=== PATIENT | male | born 1975 | race Caucasian/White ===

== ENCOUNTER 2018-08-30 14:03 | Emergency (ER) | payer BC, OTHER ==
[~2018-08-30] VITALS: Ht 180.3 cm; Wt 83.0 kg
[~2018-08-30 14:03] MED LIST: KEFL500C17 PO; PERCOCET PO; TYLE325T5 PO; ZOLO100T PO
[2018-08-30] MEDS ORDERED: MORPHINE 4 MG/ML 1ML VIAL/SYRINGE (J2270) IV ONE (16:15)
[2018-08-30 16:37] LABS: BASO # 0.1 10^3/uL (0.0-0.2); EOS # 0.3 10^3/uL (0.0-0.50); EOS % 3.3 % (0.0-3.0); HEMATOCRIT 45.6 % (42.0-52.0); HEMOGLOBIN 15.1 g/dl (13.5-17.5); LYMPH # 2.2 10^3/uL (1.5-4.5); LYMPH % 22.2 % (24.0-44.0); MEAN CORPUSCULAR HEMOGLOBIN 32.4 pg (27.0-33.0); MEAN CORPUSCULAR HGB CONC 33.1 g/dl (32.0-36.5); MEAN CORPUSCULAR VOLUME 97.9 fl (80.0-96.0); MONO # 0.7 10^3/uL (0.0-0.8); NEUTROPHILS # 6.6 10^3/uL (1.8-7.7); NEUTROPHILS % 66.1 % (36.0-66.0); PLATELET COUNT, AUTOMATED 345 10^3/uL (150-450); RED BLOOD COUNT 4.66 10^6/uL (4.30-6.10)
[2018-08-30 16:57] LABS: BLOOD UREA NITROGEN 15 MG/DL (7-18); C REACTIVE PROTEIN QUANTITATIV 1.96 MG/DL (0.00-0.30); CALCIUM LEVEL 9.1 MG/DL (8.5-10.1); CARBON DIOXIDE LEVEL 27 MEQ/L (21-32); CHLORIDE LEVEL 105 MEQ/L (98-107); CREATININE FOR GFR 0.82 MG/DL (0.70-1.30); GLOMERULAR FILTRATION RATE > 60.0 (>60); GLUCOSE, FASTING 122 MG/DL (70-100); POTASSIUM SERUM 4.1 MEQ/L (3.5-5.1); SODIUM LEVEL 140 MEQ/L (136-145)
[2018-08-30] MEDS ORDERED: BACTRIM 160MG/800MG DS TAB PO ONE (18:15)
[2018-08-30] MEDS ORDERED: BACT800T5 PO (18:17)
[2018-08-30 18:27] VITALS: BP 115/74
[2018-08-30 18:31] LABS: ERYTHROCYTE SEDIMENTATION RATE 28 mm/hr (0-15)
--- NOTE | 2018-08-30 18:32 | REP ---
REASON: Soft-tissue swelling assess for abscess. Multiple ultrasonographic images over the region of interest show a 4.5 x 2.8 x 4.8 cm sized complex area of mixed echoes of uncertain etiology. This is seen in the region of what the technologist has described as a triceps incision site. IMPRESSION: Soft tissue abnormality of uncertain etiology. There is no air fluid level or abnormal fluid collection which is well defined that would be considered consistent with a well defined abscess. Electronically Signed by Paulino Wyman DO 08/30/2018 07:43 P
== END 2018-08-30 18:28 | disposition home or self-care (01) ==
LOC: M ED 14:03
DX: L02.413 Cutaneous abscess of right upper limb (principal); L03.113 Cellulitis of right upper limb; F32.9 Major depressive disorder, single episode, unspecified; Z72.0 Tobacco use; Z79.899 Other long term (current) drug therapy
CPT/HCPCS: 76882; 80048; 83605; 85025; 85652; 86140; 87040; 99284; J2270